=== PATIENT | female | born 1950 | race Caucasian/White ===

== ENCOUNTER 2020-06-14 14:10 | Emergency (ER) | payer MEDICARE ==
[2020-06-14 14:26] VITALS: TEMP 98.1
[2020-06-14] MEDS: MORPHINE SULFATE 4 MG/ML SYRINGE IM STA ×2 (14:59→15:43)
--- NOTE | 2020-06-14 15:24 | ED ---
General Adult HPI - General Chief complaint: Fall Stated complaint: Fall down stairs Time Seen by Provider: 06/14/20 14:36 Source: patient, RN notes reviewed Mode of arrival: ambulatory Limitations: no limitations - History of Present Illness Initial comments: 69-year-old female presents to the emergency department for a chief complaint of fall. Patient states she was walking up her basement stairs when she went to lean on the railing however there was not a railing where she was. Patient fell sideways off of the stairs about 6 feet high. Patient is not on blood thinners. Patient did hit her head but did not lose consciousness. Patient denies neck back chest or abdominal pain. Patient is complaining of left hip pain as well as right knee and lower leg pain. Patient states it is painful to bear weight on the left hip. Patient is also complaining of right forearm pain. Patient has a skin tear noted to the right forearm. Patient has no other complaints at this time including shortness of breath, chest pain, abdominal pain, nausea or vomiting, headache, or visual changes. - Related Data Allergies Allergy/AdvReac Type Severity Reaction Status Date / Time No Known Allergies Allergy Verified 06/14/20 14:26 Review of Systems ROS Statement: Those systems with pertinent positive or pertinent negative responses have been documented in the HPI. ROS Other: All systems not noted in ROS Statement are negative. Past Medical History Past Medical History: Hyperlipidemia History of Any Multi-Drug Resistant Organisms: None Reported Past Surgical History: No Surgical Hx Reported Past Psychological History: Anxiety, Depression Smoking Status: Current every day smoker Past Alcohol Use History: None Reported Past Drug Use History: None Reported General Exam - General Exam Comments Initial Comments: Right forearm does have some contusions noted it with a skin tear mid forearm about 4 cm x 4 cm. Radial pulses 2+. Patient has full range of motion of the right arm including hand and wrist elbow and shoulder. Patient does not have any shoulder or humerus tenderness. Left upper extremity appears within normal limits, no sign of injury. Right lower extremity does have minimal edema noted to the tib-fib area with tenderness to the right knee. Full range of motion of the right hip without pain. DP pulse 2+ in the right lower extremity. No lacerations or abrasions. Left lower extremity patient has pain with bearing weight on the left hip. She is able to do full range of motion of the left hip. DP pulse 2+ in the left lower extremity, capillary refill less than 2 seconds. No tenderness of the tib-fib knee or foot. No contusions or lacerations or abrasions. Limitations: no limitations General appearance: alert, in no apparent distress Head exam: Present: atraumatic, normocephalic, normal inspection Eye exam: Present: normal appearance, PERRL, EOMI. Absent: scleral icterus, conjunctival injection, periorbital swelling ENT exam: Present: normal exam, normal oropharynx, mucous membranes moist, TM's normal bilaterally, normal external ear exam Neck exam: Present: normal inspection, full ROM. Absent: tenderness (No tenderness of the cervical spine), meningismus, lymphadenopathy Respiratory exam: Present: normal lung sounds bilaterally. Absent: respiratory distress, wheezes, rales, rhonchi, stridor, chest wall tenderness (No chest wall tenderness or contusions) Cardiovascular Exam: Present: regular rate, normal rhythm, normal heart sounds. Absent: systolic murmur, diastolic murmur, rubs, gallop, clicks GI/Abdominal exam: Present: soft, normal bowel sounds. Absent: distended, tenderness (No abdominal tenderness or contusions), guarding, rebound, rigid Back exam: Absent: CVA tenderness (R), CVA tenderness (L), vertebral tenderness (No back pain or tenderness.) Neurological exam: Present: alert, oriented X3, normal gait Psychiatric exam: Present: normal affect, normal mood Course Vital Signs 06/14/20 14:22 Temperature 98.1 F Pulse Rate 78 Respiratory 18 Rate Blood Pressure 104/52 O2 Sat by Pulse 98 Oximetry Medical Decision Making - Medical Decision Making CT brain and cervical spine are negative chest x-ray shows no active cardiopulmonary disease. Normal heart. X-ray of the left hip and pelvis are negative. X-ray of the right tib-fib is negative. X-ray of the right knee shows a small knee joint effusion without fracture. X-ray of the right forearm is negative aside from soft tissue swelling which is evident on exam. Patient was reevaluated and is now able to bear weight on the left hip without any difficulty. She does still have some pain on the right knee and does have antalgic gait with this. Patient was wrapped with an Anoop wrap and recommended she follow up with orthopedics. Patient will be sent home with Tylenol 3. Patient's daughter can help her around the house. Patient will return here for any worsening symptoms. Disposition Clinical Impression: Fall, Knee pain Disposition: HOME SELF-CARE Condition: Good Instructions (If sedation given, give patient instructions): Knee Pain (ED) Additional Instructions: Please take Motrin for pain. If pain is severe take Tylenol 3. Rest ice and elevate the right knee. Use Anoop wrap as needed. Please follow-up with orthopedics by calling for an appointment on Tuesday. Please return here to the emergency room for any worsening symptoms. Is patient prescribed a controlled substance at d/c from ED?: No Referrals: Wiley Mcclain DO [Primary Care Provider] - 1-2 days Francisco J Aly DO [Medical Doctor] - 1-2 days Time of Disposition: 16:17
--- NOTE | 2020-06-14 15:27 | CT ---
EXAMINATION TYPE: CT brain chilo han con DATE OF EXAM: 06/14/2020 COMPARISON: None HISTORY: Fall today with Right sided injury CT DLP: 1231.8 mGycm Automated exposure control for dose reduction was used. Ventricles and sulci appear normal. There is no mass effect nor midline shift. There is no sign of in tracranial hemorrhage. The calvarium is intact. There is no evidence of cerebral edema. Skull base is intact. There is normal aeration of the temporal bones. There is anterior 3 mm subluxation of C3-4 in relation to C5. The facet joints are intact. There is m ild hypertrophic facet arthropathy. There is mild disc space narrowing at C5-6. There is no evidence of cervical spine fracture. IMPRESSION: Mild degenerative subluxation at C4-5. Mild spondylotic changes in the cervical spine. No fracture. Negative CT scan of the brain.
[2020-06-14] MEDS ORDERED: DIPH,PERTUS(ACELL)TETVAC-LF 0.5 ML VIAL IM ONE (15:30)
[2020-06-14] MEDS ORDERED: HYDROcodone/APAP 5-325MG 1 EACH TAB PO STA (15:43)
--- NOTE | 2020-06-14 15:47 | XR ---
EXAMINATION TYPE: XR Hip LT and AP Pelvis DATE OF EXAM: 06/14/2020 COMPARISON: NONE HISTORY: Fell down the stairs. Pain. TECHNIQUE: 3 views FINDINGS: The pelvic ring is intact. Proximal left femur and hip joint are intact. There is no sign o f hip dysplasia. Sacroiliac joints appear intact. IMPRESSION: Negative pelvis and left hip exam.
--- NOTE | 2020-06-14 15:49 | XR ---
EXAMINATION TYPE: XR knee complete RT DATE OF EXAM: 06/14/2020 COMPARISON: NONE HISTORY: Pain TECHNIQUE: 3 views FINDINGS: I see no fracture nor dislocation. Joint spaces are normal. There is small knee joint effus ion. IMPRESSION: Small knee joint effusion. No fracture seen.
--- NOTE | 2020-06-14 15:52 | XR ---
EXAMINATION TYPE: XR tibia fibula RT DATE OF EXAM: 06/14/2020 COMPARISON: NONE HISTORY: Pain TECHNIQUE: 2 views FINDINGS: Tibia and fibula appear intact. I see no fracture nor dislocation. The knee joint and ankle joint appear anatomic. IMPRESSION: Negative right tibia and fibula exam. No fracture.
--- NOTE | 2020-06-14 15:53 | XR ---
EXAMINATION TYPE: XR chest 1V portable DATE OF EXAM: 06/14/2020 COMPARISON: NONE HISTORY: Pain TECHNIQUE: Single view FINDINGS: Heart and mediastinum are normal. Lungs are clear of consolidation. There are no hilar mass es. Costophrenic angles are clear. IMPRESSION: No active cardiopulmonary disease. Normal heart.
--- NOTE | 2020-06-14 15:59 | XR ---
EXAMINATION TYPE: XR forearm RT DATE OF EXAM: 06/14/2020 COMPARISON: NONE HISTORY: Pain and bruising TECHNIQUE: 2 views FINDINGS: Radius and ulna appear intact. I see no fracture nor dislocation. Joint spaces are fairly n ormal. There is soft tissue swelling anterior to the proximal forearm on the lateral view. IMPRESSION: Negative right forearm exam. Soft tissue swelling.
[2020-06-14] MEDS ORDERED: ACET/COD 300 MG/30 MG STARTER PACK 6 TAB BTL PO STA (16:18)
[2020-06-14 16:33] VITALS: BP 116/71; PULSE 70; RESP 14
== END 2020-06-14 16:31 | disposition home or self-care (01) ==
LOC: EC 14:10
DX: S51.811A Laceration without foreign body of right forearm, initial encounter (principal); M25.461 Effusion, right knee; F17.200 Nicotine dependence, unspecified, uncomplicated; Z23 Encounter for immunization; W10.9XXA Fall (on) (from) unspecified stairs and steps, initial encounter; Y93.01 Activity, walking, marching and hiking
CPT/HCPCS: 70450; 71045; 72125; 73502; 90471; 90715; 93005; 99284

== ENCOUNTER 2023-02-13 09:59 | Emergency (ER) | payer MEDICARE ==
[2023-02-13 10:12] VITALS: TEMP 97.9
[2023-02-13] MEDS ORDERED: ONDANSETRON 4 MG/2 ML VIAL IVP STA (10:38)
[2023-02-13] MEDS ORDERED: SODIUM CHLORIDE 0.9% 500 ML 500 ML IV STA (10:38)
--- NOTE | 2023-02-13 10:42 | ED ---
Nausea/Vomiting/Diarrhea HPI - General Chief complaint: Nausea/Vomiting/Diarrhea Stated complaint: Vomiting Time Seen by Provider: 02/13/23 10:24 Source: patient, family, RN notes reviewed, old records reviewed Mode of arrival: ambulatory Limitations: no limitations - History of Present Illness Initial comments: This is a nontoxic appearing 72-year-old female who presents alert and oriented 4 with complaints of persistent nausea vomiting. Patient started chemotherapy for lung cancer on Tuesday. Has not been able to keep her Zofran down. Sent by Dr. Oliveira. She denies any chest pain or difficulty breathing. Does have occasional dizziness with position changes. Denies any fevers. No abdominal pain. Family at bedside. MD complaint: nausea, vomiting -: days(s) (3) Associated Abdominal Pain: No Radiation: none Severity scale (1-10): 0 Associated Symptoms: other (dizziness) - Related Data Home Medications Medication Instructions Recorded Confirmed ALPRAZolam [Xanax] 0.5 mg PO DAILY PRN 01/13/23 01/13/23 Amitriptyline HCl [Elavil] 50 mg PO HS 01/13/23 01/13/23 Atorvastatin [Lipitor] 40 mg PO DAILY 01/13/23 01/13/23 Ibuprofen [Motrin] 800 mg PO Q8H PRN 01/13/23 01/13/23 buPROPion SR [Wellbutrin SR] 150 mg PO BID 01/13/23 01/13/23 Previous Rx's Medication Instructions Recorded Ondansetron Odt [Zofran Odt] 4 mg PO Q8HR PRN #10 tab 02/13/23 Allergies Allergy/AdvReac Type Severity Reaction Status Date / Time adhesive Allergy RED SKIN. Verified 02/13/23 10:11 BLISTERS Review of Systems ROS Statement: Those systems with pertinent positive or pertinent negative responses have been documented in the HPI. ROS Other: All systems not noted in ROS Statement are negative. Past Medical History Past Medical History: COPD, Hyperlipidemia, Rheumatoid Arthritis (RA) Additional Past Medical History / Comment(s): RT PULMONARY NODULE. AND SOME POLYPS ON RT LUNG History of Any Multi-Drug Resistant Organisms: None Reported Past Surgical History: Tubal Ligation Additional Past Surgical History / Comment(s): COLONOSCOPY. CATARACTS REMOVED BILAT EYES Past Anesthesia/Blood Transfusion Reactions: No Reported Reaction Past Psychological History: Anxiety, Depression Smoking Status: Current every day smoker - Past Family History Mother Family Medical History: No Reported History General Exam Limitations: no limitations General appearance: alert, in no apparent distress Head exam: Present: atraumatic Eye exam: Present: normal appearance. Absent: scleral icterus, conjunctival injection, periorbital swelling ENT exam: Present: mucous membranes moist Neck exam: Absent: tenderness, meningismus Respiratory exam: Absent: respiratory distress, accessory muscle use Cardiovascular Exam: Present: regular rate GI/Abdominal exam: Present: soft. Absent: distended, tenderness, guarding, rebound, rigid Extremities exam: Present: full ROM, normal capillary refill. Absent: pedal edema, calf tenderness Neurological exam: Present: alert, oriented X3 Psychiatric exam: Present: normal affect, normal mood Skin exam: Present: warm, dry, normal color. Absent: cyanosis, diaphoretic, petechiae, pallor Course Vital Signs 02/13/23 02/13/23 10:05 12:50 Temperature 97.9 F Pulse Rate 85 83 Respiratory 20 18 Rate Blood Pressure 123/71 122/83 O2 Sat by Pulse 94 L 96 Oximetry Medical Decision Making - Medical Decision Making Patient was given IV fluids and Zofran along with droperidol with relief of nausea. She is tolerating oral fluids. Vital signs are stable No evidence of leukocytosis. Hemoglobin and hematocrit are stable. Electrolytes show no area of concern. Urine cloudy with positive leukocyte esterase and bacteria. She is currently on chemotherapy will be treated with a dose of Rocephin for UTI in the ER. Urine sent for culture. Patient advised if culture positive will call prescription for antibiotics. She was given Zofran ODT and directed to follow up with her oncologist. Patient family are agreeable to this plan of care. Case discussed with Dr. Red Was pt. sent in by a medical professional or institution (, PA, [facility] [facility], urgent care, hospital, or care home...) When possible be specific @ -Dr Oliveira Did you speak to anyone other than the patient for history (EMS, parent, family, police, friend...)? What history was obtained from this source @ -No Did you review nursing and triage notes (agree or disagree)? Why? @ -I reviewed and agree with nursing and triage notes Were old charts reviewed (outside hosp., previous admission, EMS record, old EKG, old radiological studies, urgent care reports/EKG's, care home records)? Report findings @ -Previous oncology notes diagnosis right pulmonary mass/cancer Differential Diagnosis (chest pain, altered mental status, abdominal pain women, abdominal pain men, vaginal bleeding, weakness, fever, dyspnea, syncope, headache, dizziness, GI bleed, back pain, seizure, CVA, palpatations, mental health, musculoskeletal)? @ -adverse reaction to chemotherapy, viral illness, bowel obstruction, sepsis, UTI, this is not an all inclusive list EKG interpreted by me (3pts min.). @ -n/a X-rays interpreted by me (1pt min.). @ -None done CT interpreted by me (1pt min.). @ -None done U/S interpreted by me (1pt. min.). @ -None done What testing was considered but not performed or refused? (CT, X-rays, U/S, labs)? Why? @ -None What meds were considered but not given or refused? Why? @ -None Did you discuss the management of the patient with other professionals (shayna greenwood i.e. , PA, [facility] [facility], lab, RT, psych nurse, social work specialist, machinist general, teacher, traffic division commanding officer, lining caser)? Give summary @ -No Was smoking cessation discussed for >3mins.? @ -No Was critical care preformed (if so, how long)? @ -No Were there social determinants of health that impacted care today? How? (Homelessness, low income, unemployed, alcoholism, drug addiction, transportation, low edu. Level, literacy, decrease access to med. care, senior living, rehab)? @ -No Was there de-escalation of care discussed even if they declined (Discuss DNR or withdrawal of care, Hospice)? DNR status @ -No What co-morbidities impacted this encounter? (DM, HTN, Smoking, COPD, CAD, Cancer, CVA, ARF, Chemo, Hep., AIDS, mental health diagnosis, sleep apnea, morbid obesity)? @ -Lung cancer, COPD, rheumatoid arthritis, hyper-lipidemia Was patient admitted / discharged? Hospital course, mention meds given and route, prescriptions, significant lab abnormalities, going to OR and other perti nent info. @ -Discharged Undiagnosed new problem with uncertain prognosis? @ -No Drug Therapy requiring intensive monitoring for toxicity (Heparin, Nitro, Insulin, Cardizem)? @ -No Were any procedures done? @ -No Diagnosis/symptom? @ -Chemotherapy-induced nausea vomiting Acute, or Chronic, or Acute on Chronic? @ -acute Uncomplicated (without systemic symptoms) or Complicated (systemic symptoms)? @ -Uncomplicated Side effects of treatment? @ -No Exacerbation, Progression, or Severe Exacerbation? @ -No Poses a threat to life or bodily function? How? (Chest pain, [place], [place], pneumonia, PE, COPD, DKA, ARF, appy, cholecystitis, CVA, Diverticulitis, Homicidal, Suicidal, threat to staff... and all critical care pts) @ -No - Lab Data Result diagrams: 02/13/23 10:48 02/13/23 10:48 Lab Results 02/13/23 02/13/23 02/13/23 Range/Units 10:48 10:48 10:48 WBC 6.4 (3.8-10.6) k/uL RBC 3.95 (3.80-5.40) m/uL Hgb 13.7 (11.4-16.0) gm/dL Hct 40.3 (34.0-46.0) % MCV 101.9 H (80.0-100.0) fL MCH 34.6 (25.0-35.0) pg MCHC 34.0 (31.0-37.0) g/dL RDW 12.7 (11.5-15.5) % Plt Count 189 (150-450) k/uL MPV 9.8 Neutrophils % 88 % Lymphocytes % 10 % Monocytes % 0 % Eosinophils % 1 % Basophils % 0 % Neutrophils # 5.6 (1.3-7.7) k/uL Lymphocytes # 0.6 L (1.0-4.8) k/uL Monocytes # 0.0 (0-1.0) k/uL Eosinophils # 0.1 (0-0.7) k/uL Basophils # 0.0 (0-0.2) k/uL Macrocytosis Slight Sodium 138 (137-145) mmol/L Potassium 3.4 L (3.5-5.1) mmol/L Chloride 96 L (98-107) mmol/L Carbon Dioxide 39 H (22-30) mmol/L Anion Gap 3 mmol/L BUN 15 (7-17) mg/dL Creatinine 0.74 (0.52-1.04) mg/dL Est GFR (CKD-EPI)AfAm >90 (>60 ml/min/1.73 sqM) Est GFR (CKD-EPI)NonAf 81 (>60 ml/min/1.73 sqM) Glucose 103 H (74-99) mg/dL Calcium 8.9 (8.4-10.2) mg/dL Total Bilirubin 0.8 (0.2-1.3) mg/dL AST 26 (14-36) U/L ALT 38 H (4-34) U/L Alkaline Phosphatase 56 (38-126) U/L Total Protein 6.6 (6.3-8.2) g/dL Albumin 3.9 (3.5-5.0) g/dL Urine Color Yellow Urine Appearance Cloudy H (Clear) Urine pH 7.5 (5.0-8.0) Ur Specific [place] 1.011 (1.001-1.035) Urine Protein Trace H (Negative) Urine Glucose (UA) Trace H (Negative) Urine Ketones Negative (Negative) Urine Blood Negative (Negative) Urine Nitrite Negative (Negative) Urine Bilirubin Negative (Negative) Urine Urobilinogen <2.0 (<2.0) mg/dL Ur Leukocyte Esterase Large H (Negative) Urine RBC 3 (0-5) /hpf Urine WBC 11 H (0-5) /hpf Ur Squamous Epith Cells 11 H (0-4) /hpf Urine Bacteria Rare H (None) /hpf Disposition Clinical Impression: Nausea & vomiting Disposition: HOME SELF-CARE Condition: Good Instructions (If sedation given, give patient instructions): Acute Nausea and Vomiting (ED) Additional Instructions: Take Zofran as needed for nasuea and vomiting. Follow-up with your primary care doctor and oncologist this week. Return to the emergency room with any new or concerning symptoms. Your urinalysis was sent for culture and if you need antibiotics you will be contacted. Prescriptions: Ondansetron Odt [Zofran Odt] 4 mg PO Q8HR PRN #10 tab PRN Reason: Nausea Is patient prescribed a controlled substance at d/c from ED?: No Referrals: Wiley Mcclain DO [Primary Care Provider] - 1-2 days Ernie Oliveira MD [STAFF PHYSICIAN] - 1-2 days Time of Disposition: 12:55
[2023-02-13 11:00] LABS: Basophils % (A) 0 %; Eosinophils # (A) 0.1 k/uL (0-0.7); Eosinophils % (A) 1 %; HCT 40.3 % (34.0-46.0); HGB 13.7 gm/dL (11.4-16.0); Lymphocytes # (A) 0.6 k/uL (1.0-4.8); Lymphocytes % (A) 10 %; MCH 34.6 pg (25.0-35.0); MCV 101.9 fL (80.0-100.0); Macrocytosis Slight; Mean Platelet Volume 9.8; Monocytes % (A) 0 %; Neutrophils # (A) 5.6 k/uL (1.3-7.7); Neutrophils % (A) 88 %; Platelet Count 189 k/uL (150-450); RBC 3.95 m/uL (3.80-5.40); RDW 12.7 % (11.5-15.5); WBC 6.4 k/uL (3.8-10.6)
[2023-02-13 11:21] LABS: ALT 38 U/L (4-34); AST 26 U/L (14-36); African American GFR (CKD) >90 (>60 ml/min/1.73 sqM); Albumin 3.9 g/dL (3.5-5.0); Alkaline Phosphatase 56 U/L (38-126); Anion Gap 3 mmol/L; Blood Urea Nitrogen 15 mg/dL (7-17); Calcium 8.9 mg/dL (8.4-10.2); Carbon Dioxide 39 mmol/L (22-30); Chloride 96 mmol/L (98-107); Glucose 103 mg/dL (74-99); Non-African American GFR(CKD) 81 (>60 ml/min/1.73 sqM); Potassium 3.4 mmol/L (3.5-5.1); Sodium 138 mmol/L (137-145); Total Bilirubin 0.8 mg/dL (0.2-1.3); Total Protein 6.6 g/dL (6.3-8.2)
[2023-02-13 11:58] LABS: Appearance,Urine Cloudy (Clear); Bacteria,Urine Rare /hpf; Bilirubin,Urine Negative (Negative); Blood,Urine Negative (Negative); Color,Urine Yellow; Glucose,Urine (UA) Trace (Negative); Ketones,Urine Negative (Negative); Leukocyte Esterase,Urine Large (Negative); Nitrite,Urine Negative (Negative); PH, Urine 7.5 (5.0-8.0); Protein,Urine Trace (Negative); RBC,Urine 3 /hpf (0-5); Specific Gravity,Urine 1.011 (1.001-1.035); Squamous Epithelial Cell,Urine 11 /hpf (0-4); Urobilinogen,Urine <2.0 mg/dL (<2.0); WBC,Urine 11 /hpf (0-5)
[2023-02-13] MEDS ORDERED: cefTRIAXone IN SWFI 1,000 MG/10 ML SYRINGE IVP STA (12:36)
[2023-02-13 12:51] VITALS: BP 122/83; PULSE 83; RESP 18
[2023-02-13] MEDS ORDERED: ONDANSETRON 4 MG ODT STARTER PACK 2 TAB BTL PO STA (12:55)
== END 2023-02-13 13:05 | disposition home or self-care (01) ==
LOC: EC 09:59
DX: R11.2 Nausea with vomiting, unspecified (principal); J44.9 Chronic obstructive pulmonary disease, unspecified; E78.5 Hyperlipidemia, unspecified; M06.9 Rheumatoid arthritis, unspecified; F41.9 Anxiety disorder, unspecified; F32.A Depression, unspecified; F17.200 Nicotine dependence, unspecified, uncomplicated; Z91.048 Other nonmedicinal substance allergy status; Z79.899 Other long term (current) drug therapy
CPT/HCPCS: 36415; 80053; 85025; 81001; 87086; 99284; 96374; 96375 ×2; 96361; J2405; J0696; J1790

== ENCOUNTER 2023-02-22 08:31 | Emergency (ER) | payer MEDICARE ==
[2023-02-22 08:59] VITALS: RESP 18; TEMP 99.5
[2023-02-22] MEDS ORDERED: RX INFO: IV CONTRAST WAS GIVEN 1 EACH MISC MISCELLANE PRN (10:12)
[2023-02-22] MEDS: MORPHINE SULFATE 2 MG/ML SYRINGE IVP ONE (10:58)
--- NOTE | 2023-02-22 11:06 | XR ---
EXAMINATION TYPE: XR hand complete RT DATE OF EXAM: 02/22/2023 CLINICAL HISTORY: pain TECHNIQUE: Frontal, lateral and oblique images of the right hand are obtained. COMPARISON: None. FINDINGS: There is no acute fracture/dislocation evident. The joint spaces appear within normal limi ts. The overlying soft tissue appears unremarkable. IMPRESSION: There is no acute fracture or dislocation ICD 10 NO FRACTURE, INITIAL EVALUATION
[2023-02-22] MEDS: cefTRIAXone IN SWFI 1,000 MG/10 ML SYRINGE IVP STA (11:09)
[2023-02-22 11:31] LABS: ALT 19 U/L (4-34); AST 19 U/L (14-36); African American GFR (CKD) >90 (>60 ml/min/1.73 sqM); Albumin 3.6 g/dL (3.5-5.0); Alkaline Phosphatase 71 U/L (38-126); Anion Gap 8 mmol/L; Blood Urea Nitrogen 10 mg/dL (7-17); Calcium 8.6 mg/dL (8.4-10.2); Carbon Dioxide 26 mmol/L (22-30); Chloride 102 mmol/L (98-107); Glucose 93 mg/dL (74-99); Non-African American GFR(CKD) 87 (>60 ml/min/1.73 sqM); Potassium 3.9 mmol/L (3.5-5.1); Sodium 136 mmol/L (137-145); Total Bilirubin 0.5 mg/dL (0.2-1.3); Total Protein 6.3 g/dL (6.3-8.2)
--- NOTE | 2023-02-22 11:55 | CT ---
EXAMINATION TYPE: CT brain cspine wo con CT DLP: 1261 mGycm, Automated exposure control for dose reduction was used. DATE OF EXAM: 02/22/2023 11:42 AM COMPARISON: CT brain C-spine 06/14/2020. CLINICAL INDICATION:Female, 72 years old with history of fall, head injury, syncope; Fall, bruise to left eye TECHNIQUE: Brain: Multiple axial CT images of the brain were obtained without IV contrast. Cspine: Axial CT images from the skull base to the inferior aspect of T2 we obtained without intraven ous contrast. Coronal and sagittal reformatted images were also reviewed. FINDINGS: Brain: Extra-axial spaces: No abnormal extra-axial fluid collections. Ventricular system: Within normal limits Cerebral parenchyma: No acute intraparenchymal hemorrhage or mass effect. The fuentes-white junction is well differentiated. Scattered hypoattenuating areas are seen within the white matter. Cerebellum: Unremarkable. Mass effect: No evidence of midline shift. Intracranial vasculature: Atherosclerotic calcifications of the intracranial vessels. Soft tissues: Normal. Calvarium/osseous structures: No depressed skull fracture. Paranasal sinuses and mastoid air cells: Clear. Visualized orbits: Orbital contents are intact. Cervical spine: Fracture: None. Osseous structures: Multilevel facet arthropathy. Mild disc space narrowing at C5-C6. Vertebral alignment: Similar grade 1 anterolisthesis of C4 on C5. Spinal canal/Neural Foramina: No evidence of significant spinal canal narrowing. Facet joint uncovert ebral joint arthropathy scattered throughout the cervical spine with varying degrees of neural forami nal stenosis. Neck soft tissues: Prevertebral soft tissues are within normal limits. Other: The airway is patent. Please refer to dedicated CT chest of the same day for findings. IMPRESSION: 1. No acute intracranial process. 2. Nonspecific white matter changes, likely secondary to chronic small vessel ischemic disease. 3. No evidence of cervical spine fracture. 4. Mild multilevel degenerative disc disease.
--- NOTE | 2023-02-22 12:08 | CT ---
EXAMINATION TYPE: CT chest w con DATE OF EXAM: 02/22/2023 COMPARISON: HISTORY: Fall, left side rib pain CT DLP: 239 mGycm Automated exposure control for dose reduction was used. TECHNIQUE: CT scan of the chest is performed with IV Contrast, patient injected with 100 mL of Isovue 300. MIP Images are created on CT scanner and reviewed. 3D reconstructed images are created on an independent workstation and reviewed. FINDINGS: LUNGS: The lungs are grossly clear, there is no concerning consolidative pneumonia identified. Ther e is no pleural effusion or pneumothorax seen. The tracheobronchial tree is patent. Hyperinflation s uggests COPD. There is an apical lung nodule measuring 1 cm within the right lung apex this was not h ypermetabolic by recent PET scan. Right upper lobe pulmonary nodule measuring 1 cm on prior exam is n ot seen with certainty on today's exam. MEDIASTINUM: There is right perihilar soft tissue fullness is reduced in size relative to the previou s PET scan. Pretracheal and subcarinal lymph nodes are stable in size and were metabolically active b y recent PET scan but on today's study measure less than a centimeter in short axis. No pericardial e ffusion is seen. Coronary artery calcifications seen. Atherosclerotic change aorta. No diagnostic ev idence of aneurysm. OTHER: There is a hairline nondisplaced fracture anterolateral left sixth rib. Small hiatal hernia n oted. Hypertrophic and degenerative changes of the spine. IMPRESSION: 1. Hairline nondisplaced fracture anterior lateral left sixth rib correlate with point tenderness. 2. COPD with interval resolution of 1 cm nodule right upper lobe and interval reduction right hilar a nd mediastinal adenopathy. Correlate for response to therapy.
[2023-02-22 12:11] LABS: HCT 34.4 % (34.0-46.0); HGB 11.7 gm/dL (11.4-16.0); MCH 34.7 pg (25.0-35.0); MCHC 33.9 g/dL (31.0-37.0); MCV 102.5 fL (80.0-100.0); Macrocytosis Slight; Mean Platelet Volume 9.3; RBC 3.35 m/uL (3.80-5.40); RDW 13.3 % (11.5-15.5)
[2023-02-22 13:00] LABS: Platelet Count 98 k/uL (150-450); WBC 0.8 k/uL (3.8-10.6)
--- NOTE | 2023-02-22 13:29 | ED ---
Fall HPI - General Chief Complaint: Fall Stated Complaint: fall Time Seen by Provider: 02/22/23 09:00 Source: patient Mode of arrival: ambulatory - History of Present Illness Initial Comments: 72-year-old female past history of cancer on chemotherapy who presents to the emergency department reporting the fall. States she tripped over a curb yesterday and fell on her left-sided chest wall. She has been having chest wall pain and some shortness of consciousness. She hit her head and briefly lost consciousness. Does not take any blood thinners. She denies any neck or back pain. No abdominal pain. Denies nausea or vomiting. Also reports 2 abrasion to her right wrist. It blistered last night. Patient placed a cut in it this morning and reports that the redness is spreading of the wrist. She is concerned for infection as she is on chemo last received it 10 days ago. She denies any headache or visual changes. No other alleviating, precipitating or modifying factors - Related Data Home Medications Medication Instructions Recorded Confirmed ALPRAZolam [Xanax] 0.5 mg PO BID 01/13/23 02/22/23 Amitriptyline HCl [Elavil] 50 mg PO HS 01/13/23 02/22/23 Atorvastatin [Lipitor] 40 mg PO DAILY 01/13/23 02/22/23 buPROPion SR [Wellbutrin SR] 150 mg PO BID 01/13/23 02/22/23 Aprepitant [Emend] 80 mg PO DIRECTED 02/22/23 02/22/23 Ibuprofen [Motrin] 600 mg PO Q8HR PRN 02/22/23 02/22/23 Nicotine 14Mg/24Hr Patch [Habitrol 1 patch TRANSDERM DAILY 02/22/23 02/22/23 14Mg/24Hr Patch] OLANZapine [ZyPREXA] 2.5 mg PO HS 02/22/23 02/22/23 Sennosides/Docusate Sodium [Senna 2 tab PO BID 02/22/23 02/22/23 Plus 8.6-50 mg Tablet] Previous Rx's Medication Instructions Recorded Ondansetron Odt [Zofran Odt] 4 mg PO Q8HR PRN #10 tab 02/13/23 Bacitracin Zinc Oint 1 applic TOPICAL TID #28 gm 02/22/23 Cephalexin [Keflex] 500 mg PO Q6HR #20 cap 02/22/23 HYDROcodone/APAP 7.5-325MG [[place] 1 tab PO Q4HR PRN 3 Days #18 tab 02/22/23 7.5-325] Lidocaine 5% Patch [Lidoderm] 1 patch TOPICAL DAILY #24 patch 02/22/23 Allergies Allergy/AdvReac Type Severity Reaction Status Date / Time adhesive Allergy RED SKIN. Verified 02/22/23 11:03 BLISTERS Review of Systems ROS Statement: Those systems with pertinent positive or pertinent negative responses have been documented in the HPI. ROS Other: All systems not noted in ROS Statement are negative. Past Medical History Past Medical History: COPD, Hyperlipidemia, Rheumatoid Arthritis (RA) Additional Past Medical History / Comment(s): RT PULMONARY NODULE. AND SOME POLYPS ON RT LUNG History of Any Multi-Drug Resistant Organisms: None Reported Past Surgical History: Tubal Ligation Additional Past Surgical History / Comment(s): COLONOSCOPY. CATARACTS REMOVED BILAT EYES Past Anesthesia/Blood Transfusion Reactions: No Reported Reaction Past Psychological History: Anxiety, Depression Smoking Status: Current every day smoker - Past Family History Mother Family Medical History: No Reported History General Exam Limitations: no limitations General appearance: alert, in no apparent distress Head exam: Present: atraumatic, normocephalic, normal inspection Eye exam: Present: PERRL, EOMI, periorbital swelling (and ecchymosis around left eye). Absent: scleral icterus, conjunctival injection ENT exam: Present: normal exam, mucous membranes moist Neck exam: Present: normal inspection. Absent: tenderness, meningismus, lymphadenopathy Respiratory exam: Present: normal lung sounds bilaterally, chest wall tenderness (left lateral chest wall). Absent: respiratory distress, wheezes, rales, rhonchi, stridor Cardiovascular Exam: Present: normal rhythm, tachycardia, normal heart sounds. Absent: systolic murmur, diastolic murmur, rubs, gallop, clicks GI/Abdominal exam: Present: soft, normal bowel sounds. Absent: distended, tenderness, guarding, rebound, rigid Extremities exam: Present: normal inspection, full ROM, normal capillary refill. Absent: tenderness, pedal edema, joint swelling, calf tenderness Back exam: Present: normal inspection Neurological exam: Present: alert, oriented X3, CN II-XII intact Psychiatric exam: Present: normal affect, normal mood Skin exam: Present: warm, dry, abrasion (right thenar eminence with surrounding redness. No identifiable abcess). Absent: rash Course Vital Signs 02/22/23 02/22/23 08:56 13:28 Temperature 99.5 F Pulse Rate 103 H 100 Respiratory 18 18 Rate Blood Pressure 119/72 114/71 O2 Sat by Pulse 96 96 Oximetry Medical Decision Making - Medical Decision Making Was pt. sent in by a medical professional or institution (, TOMAS, DUE DILIGENCE COORDINATOR, urgent care, hospital, or [facility]...) When possible be specific @ -No Did you speak to anyone other than the patient for history (EMS, parent, family, police, friend...)? What history was obtained from this source @ -Patients daughter helped to describe her symptoms Did you review nursing and triage notes (agree or disagree)? Why? @ -I reviewed and agree with nursing and triage notes Were old charts reviewed (outside hosp., previous admission, EMS record, old EKG, old radiological studies, urgent care reports/EKG's, [facility] records)? Report findings @ -No old charts were reviewed Differential Diagnosis (chest pain, altered mental status, abdominal pain women, abdominal pain men, vaginal bleeding, weakness, fever, dyspnea, syncope, headache, dizziness, GI bleed, back pain, seizure, CVA, palpatations, mental health, musculoskeletal)? @ -cellulites, wrist fracture, abscess, pneumothorax, rib fracture, pulmonary contusion EKG interpreted by me (3pts min.). @ -As above X-rays interpreted by me (1pt min.). @ -yes CT interpreted by me (1pt min.). @ -yes U/S interpreted by me (1pt. min.). @ -None done What testing was considered but not performed or refused? (CT, X-rays, U/S, labs)? Why? @ -None What meds were considered but not given or refused? Why? @ -None Did you discuss the management of the patient with other professionals (professionals i.e. TOMAS Marino, DUE DILIGENCE COORDINATOR, lab, RT, psych nurse, secondary social studies teacher, administrative officer, teacher, v/stol landing signal officer, piano case and bench assembler)? Give summary @ -No Was smoking cessation discussed for >3mins.? @ -No Was critical care preformed (if so, how long)? @ -No Were there social determinants of health that impacted care today? How? (Homelessness, low income, unemployed, alcoholism, drug addiction, transportation, low edu. Level, literacy, decrease access to med. care, custodial, rehab)? @ -No Was there de-escalation of care discussed even if they declined (Discuss DNR or withdrawal of care, Hospice)? DNR status @ -No What co-morbidities impacted this encounter? (DM, HTN, Smoking, COPD, CAD, Cancer, CVA, ARF, Chemo, Hep., AIDS, mental health diagnosis, sleep apnea, morbid obesity)? @ -lung cancer on chemo Was patient admitted / discharged? Hospital course, mention meds given and route, prescriptions, significant lab abnormalities, going to OR and other pertinent info. @ -Upon arrival patient is placed into room 10. History of physical exam is performed. IV access is established. Patient is given pain medications. Laboratories his her conducted which demonstrated a white blood cell count of 0.8. CT of the brain and cervical spine demonstrates no acute process. And x- ray demonstrates no residual foreign body. CT of the chest demonstrates a healing fracture of the left lateral sixth rib. Results are discussed with patient. She is given a incentive spirometer. She is given a prescription for [place] and lidocaine patches. She'll be placed on Keflex for her right hand wound. Instructed to keep it clean and dry. Pelvic Dr. Tom return for any new or worsening symptoms per patient was agreeable to plan she was discharged home in stable condition Undiagnosed new problem with uncertain prognosis? @ -No Drug Therapy requiring intensive monitoring for toxicity (Heparin, Nitro, Insulin, Cardizem)? @ -No Were any procedures done? @ -No Diagnosis/symptom? @ -acute fall, left chest wall pain, acute rib fracture, cellulitis right hand, neutropenia, lung cancer on chemo Acute, or Chronic, or Acute on Chronic? @ -acute Uncomplicated (without systemic symptoms) or Complicated (systemic symptoms)? @ -complicated Side effects of treatment? @ -No Exacerbation, Progression, or Severe Exacerbation? @ -No Poses a threat to life or bodily function? How? (Chest pain, USA, CT, pneumonia, PE, COPD, DKA, ARF, appy, cholecystitis, CVA, Diverticulitis, Homicidal, Suicidal, threat to staff... and all critical care pts) @ -No - Lab Data Result diagrams: 02/22/23 10:50 02/22/23 10:50 Lab Results 02/22/23 02/22/23 Range/Units 10:50 10:50 WBC 0.8 L* (3.8-10.6) k/uL RBC 3.35 L (3.80-5.40) m/uL Hgb 11.7 (11.4-16.0) gm/dL Hct 34.4 (34.0-46.0) % MCV 102.5 H (80.0-100.0) fL MCH 34.7 (25.0-35.0) pg MCHC 33.9 (31.0-37.0) g/dL RDW 13.3 (11.5-15.5) % Plt Count 98 L (150-450) k/uL MPV 9.3 Manual Slide Review Performed Macrocytosis Slight Sodium 136 L (137-145) mmol/L Potassium 3.9 (3.5-5.1) mmol/L Chloride 102 (98-107) mmol/L Carbon Dioxide 26 (22-30) mmol/L Anion Gap 8 mmol/L BUN 10 (7-17) mg/dL Creatinine 0.68 (0.52-1.04) mg/dL Est GFR (CKD-EPI)AfAm >90 (>60 ml/min/1.73 sqM) Est GFR (CKD-EPI)NonAf 87 (>60 ml/min/1.73 sqM) Glucose 93 (74-99) mg/dL Calcium 8.6 (8.4-10.2) mg/dL Total Bilirubin 0.5 (0.2-1.3) mg/dL AST 19 (14-36) U/L ALT 19 (4-34) U/L Alkaline Phosphatase 71 (38-126) U/L Total Protein 6.3 (6.3-8.2) g/dL Albumin 3.6 (3.5-5.0) g/dL Disposition Clinical Impression: Fall, Left rib fracture, Chemotherapy induced neutropenia, Abrasion of right hand, Concussion with loss of consciousness Disposition: HOME SELF-CARE Condition: Stable Instructions (If sedation given, give patient instructions): Rib Fracture (ED), Fall Prevention (ED) Additional Instructions: Please take the antibiotics starting tomorrow. You may alternate taking the [place] with Motrin every 4 hours. Do not take any extra Tylenol. Use the incentive spirometer once every 2 hours. Keep your wound cleaned and dry. Return if your redness and swelling gets any worse or if you have pustular drainage from the site Prescriptions: Bacitracin Zinc Oint 1 applic TOPICAL TID #28 gm Cephalexin [Keflex] 500 mg PO Q6HR #20 cap Lidocaine 5% Patch [Lidoderm] 1 patch TOPICAL DAILY #24 patch HYDROcodone/APAP 7.5-325MG [[place] 7.5-325] 1 tab PO Q4HR PRN 3 Days #18 tab PRN Reason: Pain Is patient prescribed a controlled substance at d/c from ED?: Yes When asked, does pt state using other controlled substances?: No Referrals: Wiley Mcclain DO [Primary Care Provider] - 1-2 days Time of Disposition: 13:28
[2023-02-22 13:30] VITALS: BP 114/71; PULSE 100
[2023-02-22] MEDS: MORPHINE SULFATE 4 MG/ML SYRINGE IVP STA (13:30)
[2023-02-22] MEDS: BACITRACIN OINT 1 EACH PACKET TOPICAL ONE (13:40)
== END 2023-02-22 13:45 | disposition home or self-care (01) ==
LOC: EC 08:31
DX: S22.32XA Fracture of one rib, left side, initial encounter for closed fracture (principal); S06.0X9A Concussion with loss of consciousness of unspecified duration, initial encounter; T45.1X5A Adverse effect of antineoplastic and immunosuppressive drugs, initial encounter; E78.5 Hyperlipidemia, unspecified; J44.9 Chronic obstructive pulmonary disease, unspecified; F41.9 Anxiety disorder, unspecified; F32.A Depression, unspecified; F17.200 Nicotine dependence, unspecified, uncomplicated; Z79.1 Long term (current) use of non-steroidal anti-inflammatories (NSAID); Z79.899 Other long term (current) drug therapy; W01.0XXA Fall on same level from slipping, tripping and stumbling without subsequent striking against object, initial encounter
CPT/HCPCS: 36415; 80053; 85025; 87040; 73130; 72125; 70450; 71260; 99284; 96375; 96376; 96374; J2270 ×2; J0696; Q9967

== ENCOUNTER → 2023-03-31 | Outpatient (CLI) | payer MEDICARE ==
--- NOTE | 2023-03-31 15:26 | XR ---
EXAMINATION TYPE: XR chest 2V DATE OF EXAM: 03/31/2023 COMPARISON: NONE TECHNIQUE: PA and lateral views submitted. HISTORY: cough FINDINGS: The lungs are clear and there is no pneumothorax, pleural effusion, or focal pneumonia. Heart size normal and no overt failure. Osseous structures demonstrate hypertrophic and degenerative changes of the spine. Hyperinflation suggests COPD. IMPRESSION: 1. No acute process.
== END | disposition home or self-care (01) ==
LOC: RADXRMAIN 14:05
PROVIDERS: ATTEND Internal Medicine Hematology & Oncology
DX: C34.91 Malignant neoplasm of unspecified part of right bronchus or lung (principal); E78.5 Hyperlipidemia, unspecified; F41.9 Anxiety disorder, unspecified
CPT/HCPCS: 71046

== ENCOUNTER → 2023-05-02 | Outpatient (CLI) | payer MEDICARE ==
[2023-05-02 14:35] LABS: African American GFR (CKD) >90 (>60 ml/min/1.73 sqM); Blood Urea Nitrogen 8 mg/dL (7-17); Non-African American GFR(CKD) >90 (>60 ml/min/1.73 sqM)
--- NOTE | 2023-05-03 17:27 | CT ---
EXAMINATION TYPE: CT ChestAbdPelvis w con DATE OF EXAM: 05/02/2023 INDICATION: obs for mets, hx lung ca COMPARISON: 02/22/2023r CT DLP: 528.10 mGycm CONTRAST: Performed with Oral Contrast and with IV Contrast, patient injected with 100 mL of Isovue 300. TECHNIQUE: Axial images at 5 mm thick sections. Reconstructed images in the coronal plane. Delayed images through the kidneys. FINDINGS: CT CHEST: Portion of the thyroid visualized is normal. There is a spiculated 1.0 x 2.1 cm mass at the right apex. This may have increased spiculation from c omparison. Previous measurement 1.1 x 1.8 cm. No enlarged mediastinal or hilar adenopathy is evident. The ascending aorta diameter at the level of the main pulmonary artery is 3.2 cm. The main pulmonary artery diameter at the bifurcation is 2.[address] ABDOMEN: Liver: Normal Spleen: Normal Pancreas: Normal Adrenal glands: The adrenal glands are normal. Gallbladder: Appears to be some filling of the gallbladder. This is nonspecific and not typical galls tones. Debris should be considered. Kidneys: No masses are evident. No hydronephrosis is present. No cysts are present. Aorta: Vascular calcification is within the aorta. Inferior vena cava: Normal. CT PELVIS: Loops of bowel within the abdomen and pelvis are normal. This study has limited oral contrast wit hin distal small bowel loops. There are loops of bowel lacking oral contrast limiting their evaluatio n. Appendix: Not visualized. Urinary bladder: Normal. Genitourinary structures: Uterus appears unremarkable. Adnexa are unremarkable. Osseous structures: No suspicious lytic or sclerotic lesions. Facet degenerative changes are present L5-S1. IMPRESSIONS: 1. Right apical mass appears larger with more spiculation in comparison. Consider reevaluation with P ET/CT. 2. There may be debris within the contracted gallbladder. Ultrasound can be performed as clinically i ndicated
== END | disposition home or self-care (01) ==
LOC: RADCTMAIN 13:24
PROVIDERS: ATTEND Internal Medicine Hematology & Oncology
DX: C34.91 Malignant neoplasm of unspecified part of right bronchus or lung (principal)
CPT/HCPCS: 82565; 84520; 71260; 74177; 36415; Q9967

== ENCOUNTER → 2023-08-01 | Outpatient (CLI) | payer MEDICARE ==
[2023-08-01 12:23] LABS: African American GFR (CKD) >90 (>60 ml/min/1.73 sqM); Blood Urea Nitrogen 9 mg/dL (7-17); Non-African American GFR(CKD) 84 (>60 ml/min/1.73 sqM)
--- NOTE | 2023-08-01 14:36 | CT ---
EXAMINATION TYPE: CT ChestAbdPelvis w con CT DLP: 428.1 mGycm, Automated exposure control for dose reduction was used. DATE OF EXAM: 08/01/2023 1:40 PM COMPARISON: CT chest abdomen pelvis 05/02/2023, CT chest 02/22/2023, PET/CT 01/07/2023. CLINICAL INDICATION:Female, 73 years old with history of C34.91 MALIGNANT NEOPLASM OF UNSP PART OF RI GHT BR; PHH, f/u lung ca Technique: Multiple axial images of the chest, abdomen, and pelvis were obtained following the intrav enous administration of 100 mL Isovue-300. Oral contrast was a medical officer psychiatry. Two-dimensional coronal and sagittal reconstructions were obtained. Findings: CHEST: LUNGS/ PLEURA: No pleural effusion, pneumothorax, or focal consolidation. Mild centrilobular emphysem atous changes. Stable right apical soft tissue scarring with spiculations from prior examination. Thi s was not FDG avid on prior PET/CT. No new or enlarging pulmonary nodules. AIRWAY: Patent and unremarkable.. HEART: Size within normal limits. No pericardial effusion. Mild coronary artery calcifications. MEDIASTINUM: No evidence of adenopathy. VASCULATURE: No aortic aneurysm. MUSCULOSKELETAL: No acute osseous abnormalities. Remote left anterior rib healing fractures. SOFT TISSUES/LYMPH NODES: Unremarkable. LOWER NECK: No significant findings. ABDOMEN: ABDOMEN LIVER: Subcentimeter stable right lateral lower hepatic lobe hypodense focus which is too small yaya cterize but likely represents a cyst. GALLBLADDER AND BILE DUCTS: Layering increased densities within the lumen consistent with gallstones are present. PANCREAS: Unremarkable. SPLEEN: Unremarkable. ADRENAL GLANDS: Unremarkable. KIDNEYS AND URETERS: No evidence of hydronephrosis or renal calculus. The kidneys enhance symmetrical ly. PELVIS BLADDER: Unremarkable REPRODUCTIVE: Unremarkable. ABDOMEN & PELVIS STOMACH AND BOWEL: Stomach and duodenum are unremarkable. Enteric contrast reaches the ascending colo n. No evidence of bowel obstruction. PERITONEUM: No evidence of pneumoperitoneum or free fluid. VASCULATURE: Mild atherosclerotic calcifications are present throughout the abdominal aorta and its b ranches. No abdominal aortic aneurysm. MUSCULOSKELETAL: No acute osseous abnormalities. Mild disc degeneration changes are present throughout the thoracolumbar spine. S scoliotic curvature. LYMPH NODES: No gross evidence for lymphadenopathy. SOFT TISSUE/ABDOMINAL WALL: Unremarkable IMPRESSION: 1. Stable right apical masslike consolidation/scarring from prior examination dating back to PET/CT 01/07/2023 which did not demonstrate FDG avidity at that time. Favored to represent scarring. Previous ly seen right perihilar soft tissue thickening and right upper lobe pulmonary nodule are no longer pr esent and consistent with positive response to previously seen FDG avid malignancy. No CT evidence fo r recurrence. 2. No evidence for metastatic disease within the abdomen and pelvis. 3. Cholelithiasis.
== END | disposition home or self-care (01) ==
LOC: RADCTMAIN 11:44
PROVIDERS: ATTEND Internal Medicine Hematology & Oncology
DX: C34.91 Malignant neoplasm of unspecified part of right bronchus or lung (principal); K80.20 Calculus of gallbladder without cholecystitis without obstruction; F41.9 Anxiety disorder, unspecified; E78.5 Hyperlipidemia, unspecified
CPT/HCPCS: 82565; 84520; 71260; 74177; 36415; Q9967

== ENCOUNTER → 2023-09-13 | Outpatient (CLI) | payer MEDICARE ==
--- NOTE | 2023-09-14 10:26 | CA ---
Transthoracic Echo Report Name: Adriana Jenkins Age: 73 Gender: F : 1950 Exam Date: 09/13/2023 13:16 Exam Location: [place] [facility] Ht (in): 62 Wt (lb): 114 Ordering Physician: Hieu Escobar MD Attending/Referring Phys: Contractor General Building Fanny Hatch [facility] Procedure CPT: Indications: R00.0 tachycardia Cardiac Hx: Technical Quality: Fair Contrast 1: Total Dose (mL): Contrast 2: Total Dose (mL): MEASUREMENTS (Male / Female) Normal Values 2D ECHO LV Diastolic Diameter PLAX 4.5 cm 4.2 - 5.9 / 3.9 - 5.3 cm LV Systolic Diameter PLAX 3.4 cm IVS Diastolic Thickness 0.8 cm 0.6 - 1.0 / 0.6 - 0.9 cm LVPW Diastolic Thickness 0.9 cm 0.6 - 1.0 / 0.6 - 0.9 cm LV Relative Wall Thickness 0.4 LVOT Diameter 2.0 cm Ascending Aorta Diameter 3.2 cm M-MODE Aortic Root Diameter MM 2.3 cm LA Systolic Diameter MM 3.1 cm LA Ao Ratio MM 1.3 AV Cusp Separation MM 1.3 cm DOPPLER AV Peak Velocity 109.6 cm/s AV Peak Gradient 4.8 mmHg AV Mean Velocity 76.7 cm/s AV Mean Gradient 2.7 mmHg AV Velocity Time Integral 21.0 cm LVOT Peak Velocity 106.3 cm/s LVOT Peak Gradient 4.5 mmHg LVOT Velocity Time Integral 16.8 cm LVOT Stroke Volume 53.3 cm??? LVOT Stroke Volume Index 35.4 ml/m??? LVOT Cardiac Index 2552.1 cm???/min???m??? AV Area Cont Eq vti 2.5 cm??? AV Area Cont Eq pk 3.1 cm??? Mitral E Point Velocity 45.9 cm/s Mitral A Point Velocity 76.7 cm/s Mitral E to A Ratio 0.6 MV Deceleration Time 210.6 ms LV E' Lateral Velocity 7.0 cm/s Mitral E to LV E' Lateral Ratio 6.5 LV E' Septal Velocity 6.5 cm/s Mitral E to LV E' Septal Ratio 7.1 TR Peak Velocity 235.8 cm/s TR Peak Gradient 22.2 mmHg Right Atrial Pressure 15.0 mmHg Pulmonary Artery Systolic Pressu 37.2 mmHg Right Ventricular Systolic Press 37.2 mmHg FINDINGS Left Ventricle Left ventricular wall thickness normal. Left ventricular cavity size normal. Low normal left ventricular systolic function with no obvious regional wall motion abnormalities. Left ventricular ejection fraction is estimated at 50- 55%. Right Ventricle Normal right ventricular size. Mild pulmonary hypertension. Right Atrium Normal right atrial size. Left Atrium Normal left atrial size. Mitral Valve Structurally normal mitral valve. No mitral regurgitation. Aortic Valve Trileaflet aortic valve. Diffuse thickening of the aortic valve cusps with reduced excursion. No aortic regurgitation. Tricuspid Valve Structurally normal tricuspid valve. Trace tricuspid regurgitation. Pulmonic Valve Pulmonic valve not well visualized. Trace pulmonic regurgitation. Pericardium No pericardial effusion. Echo free space anterior to the right ventricle likely represents a fat pad. Aorta Normal size aortic root and proximal ascending aorta. CONCLUSIONS Left ventricular ejection fraction is estimated at 50-55%. Normal LV size and systolic function Normal LV wall thickness No obvious regional wall motion abnormalities. Aortic sclerosis with no stenosis Epicardial fat Previewed by: Dr Jose A Daniel (Electronically Signed) Final Date: 14 September 2023 10:25
== END | disposition home or self-care (01) ==
LOC: RADECHMAIN 12:57
PROVIDERS: ATTEND Internal Medicine Critical Care Medicine
DX: I70.0 Atherosclerosis of aorta (principal); R00.0 Tachycardia, unspecified
CPT/HCPCS: 93306

== ENCOUNTER → 2023-09-13 | Outpatient (CLI) | payer MEDICARE ==
[2023-09-13 18:59] LABS: HCT 37.4 % (37.2-46.3); HGB 12.4 d/dL (12.0-15.0); MCHC 33.2 d/dL (32.0-37.0); MCV 108.7 FL (80.0-97.0); Mean Platelet Volume 10.6 FL (9.5-12.2); NRBC Per 100 WBC 0 X 10*3/uL (0.00-0.01); Platelet Count 298 X 10*3/uL (140-440); RBC 3.44 X 10*6/uL (4.10-5.20); RDW 14.1 % (11.5-14.5); WBC 5.48 X 10*3/uL (4.50-10.00)
[2023-09-13 19:34] LABS: ALT 16 U/L (8-44); AST 18 U/L (13-35); Albumin 4.5 d/dL (3.8-4.9); Alkaline Phosphatase 79 U/L (41-126); BUN/Creat Ratio 15.14 Ratio (12.00-20.00); Blood Urea Nitrogen 10.6 mg/dL (9.0-27.0); Calcium 9.7 mg/dL (8.7-10.3); Carbon Dioxide 24.2 mmol/L (21.6-31.8); Chloride 102 mmol/L (96-109); Globulin 2.5 d/dL (1.6-3.3); Glucose 81 mg/dL (70-110); Potassium 4.3 mmol/L (3.5-5.5); Sodium 138 mmol/L (135-145); T4, Free (Free Thyroxine) 1.32 ng/dL (0.80-1.80); Total Bilirubin 0.3 mg/dL (0.3-1.2)
[2023-09-13 21:31] LABS: Basophils # (A) 0.04 X 10*3/uL (0.00-0.10); Basophils % (A) 0.7 %; Elliptocytes 2+; Eosinophils # (A) 0.12 X 10*3/uL (0.04-0.35); Eosinophils % (A) 2.2 %; Lymphocytes # (A) 1.26 X 10*3/uL (0.90-5.00); Macrocytosis (M) 2+; Monocytes # (A) 0.63 X 10*3/uL (0.20-1.00); Monocytes % (A) 11.5 %; Neutrophils # (A) 3.42 X 10*3/uL (1.80-7.70); Neutrophils % (A) 62.4 %
== END | disposition home or self-care (01) ==
LOC: LABWHC1 13:44
PROVIDERS: ATTEND Internal Medicine Critical Care Medicine
DX: R00.0 Tachycardia, unspecified (principal)
CPT/HCPCS: 36415; 80053; 84439; 84443; 85025

== ENCOUNTER → 2023-10-31 | Outpatient (CLI) | payer MEDICARE ==
[2023-10-31 09:47] LABS: African American GFR (CKD) >90 (>60 ml/min/1.73 sqM); Blood Urea Nitrogen 14 mg/dL (7-17); Non-African American GFR(CKD) 85 (>60 ml/min/1.73 sqM)
--- NOTE | 2023-11-03 12:15 | CT ---
EXAMINATION TYPE: CT ChestAbdPelvis w con DATE OF EXAM: 10/31/2023 INDICATION: Lung Cancer COMPARISON: 08/01/2023 CT DLP: 510.40 mGycm CONTRAST: Performed with Oral Contrast and with IV Contrast, patient injected with 100 ml mL of Isovue 300. TECHNIQUE: Axial images at 5 mm thick sections. Reconstructed images in the coronal plane. Delayed images through the kidneys. FINDINGS: CT CHEST: Portion of the thyroid visualized is normal. Right apical thickening is present measuring 1.1 cm transverse. This is present previously. No enlarged mediastinal or hilar adenopathy is evident. The ascending aorta diameter at the level of the main pulmonary artery is 3.2 cm. The main pulmonary artery diameter at the bifurcation is 2.[address] ABDOMEN: Liver: Normal Spleen: Normal Pancreas: Normal Adrenal glands: The adrenal glands are normal. Gallbladder: There may be some sludge or small gallstones within the gallbladder. Kidneys: No masses are evident. No hydronephrosis is present. No cysts are present. Delayed images were obtained through the kidneys, which remain unremarkable. Aorta: Vascular calcification is within the aorta. Inferior vena cava: Normal. CT PELVIS: Loops of bowel within the abdomen and pelvis are normal. There are loops of bowel which are incom pletely distended or lack oral contrast limiting their evaluation. Appendix: Not identified. No dilated tubular structure or inflammatory changes evident. Urinary bladder: Normal. Genitourinary structures: Uterus appears normal. Adnexa are unremarkable. Osseous structures: No suspicious lytic or sclerotic lesions. Facet hypertrophy is in the lower lumba r spine IMPRESSION: 1. Right apical thickening, stable from comparison. 2. No suspicious metastatic lung cancer findings.
== END | disposition home or self-care (01) ==
LOC: RADCTMAIN 08:58
PROVIDERS: ATTEND Internal Medicine Hematology & Oncology
DX: C34.91 Malignant neoplasm of unspecified part of right bronchus or lung (principal); F41.9 Anxiety disorder, unspecified; E78.5 Hyperlipidemia, unspecified
CPT/HCPCS: 82565; 84520; 71260; 74177; 36415; Q9967

== ENCOUNTER → 2023-11-30 | Outpatient (CLI) | payer MEDICARE ==
--- NOTE | 2023-12-04 21:10 | MR ---
EXAMINATION TYPE: MR brain wo/w con DATE OF EXAM: 11/30/2023 COMPARISON: 09/05/2023 HISTORY: 73-year-old female C34.11, Malignant Neoplasm lung , 3 month f/u TECHNIQUE: Multiplanar, multisequence images of the brain and brainstem were acquired before and aft er administration of 5 mL IV Gadavist. Diffusion weighted imaging is performed. FINDINGS: No evidence for acute infarction, hemorrhage, mass, mass effect, midline shift, herniation, effacemen t of basal cisterns, or extra-axial fluid collection. The ventricles and sulci are age-appropriate. Major intracranial flow voids are intact. Redemonstrated findings suspicious for a 6 cm saccular aneu rysm projecting laterally from the clinoid segment right ICA. Possible additional 3 mm outpouching fr om the clinoid segment right ICA projecting anteriorly. Refer to axial series 701 image 59. Persisten t origin bilateral posterior cerebral arteries. Dominant left vertebral artery. T2/FLAIR weighted sequences show similar mild patchy periventricular bright white matter change espec ially in the periatrial regions. Mild patchy bright signal change bilateral paramedian amisha also rede monstrated. Midline structures demonstrate normal morphology. The craniocervical junction is normal. Post contrast images demonstrate no evidence of pathologic enhancement. Dural venous sinuses are pat ent. Mild mucosal thickening ethmoid air cells. Globes are intact. Leftward nasal septal deviation. IMPRESSION: 1. No enhancing intracranial lesions to suggest brain metastases. No acute intracranial abnormality s een. Similar mild burden of chronic small vessel ischemic disease. 2. Similar findings suspicious for saccular aneurysms from the right ICA measuring 6 mm and 3 mm. Rec ommend confirmation with thin cut CTA [place] of [place] and neurosurgery follow-up.
== END | disposition home or self-care (01) ==
LOC: RADMRIMAIN 09:56
PROVIDERS: ATTEND Radiology Radiation Oncology
DX: I67.82 Cerebral ischemia (principal); C77.1 Secondary and unspecified malignant neoplasm of intrathoracic lymph nodes; C34.11 Malignant neoplasm of upper lobe, right bronchus or lung
CPT/HCPCS: 70553; A9585

== ENCOUNTER → 2024-01-30 | Outpatient (CLI) | payer MEDICARE ==
[2024-01-30 12:32] LABS: African American GFR (CKD) >90 (>60 ml/min/1.73 sqM); Blood Urea Nitrogen 13 mg/dL (7-17); Non-African American GFR(CKD) 86 (>60 ml/min/1.73 sqM)
--- NOTE | 2024-01-30 14:00 | CT ---
EXAMINATION: CT CHEST, ABDOMEN AND PELVIS WITH IV CONTRAST DATE OF EXAMINATION: 01/30/2024. COMPARISON: None available. INDICATION: Follow-up for small cell lung cancer. PROCEDURE: Axial CT of the chest, abdomen and pelvis was performed following the intravenous adminis tration of 100 ml Isovue 300. Coronal and sagittal reformats were performed. CT dose lowering techni ques were used, to include: automated exposure control, adjustment for patient size, and/or use of it erative reconstruction. FINDINGS: CHEST: Mediastinum and Joslyn: There is no axillary, mediastinal or hilar lymphadenopathy. Pleural and Pericardial spaces: There are no pleural or pericardial effusions. Cardiovascular: There is mild vascular calcification within the thoracic aorta without evidence of an eurysmal dilation or dissection. Mild patchy coronary artery calcifications are otherwise noted. Pulmonary Artery: There are no central pulmonary arterial filling defects. Lung Parenchyma and Airways: There is moderate to severe diffuse centrilobular emphysema. ABDOMEN: Liver and Biliary system: There is a subcentimeter hypodensity within the right lobe of the liver th at is too small to fully characterize. This is unchanged. No new liver lesions are seen. Adrenal glands: Normal. Kidneys and ureters: Normal. Spleen: Normal. Pancreas: Normal. Gallbladder: Several gallstones are seen within the gallbladder. Lymph nodes, Peritoneum and mesentery: There is no mesenteric or retroperitoneal lymphadenopathy. Gastrointestinal tract: There are no dilated loops of bowel or free intraperitoneal air. . The appe ndix is normal. Aorta/IVC: There is moderate vascular calcification throughout the abdominal aorta without evidence of aneurysmal dilation or dissection.. IVC normal. Abdominal wall: Normal. PELVIS: Fluid: There is no free fluid in the pelvis. Lymph Nodes: There is no pelvic or inguinal lymphadenopathy.. Urinary bladder: Normal. BONES: There are no osseous destructive lesions.. ADDITIONAL SIGNIFICANT FINDINGS: None. IMPRESSION: 1. No definitive evidence of recurrent, residual or metastatic disease within the chest, abdomen or p arti. 2. Additional incidental and chronic changes noted above.
== END | disposition home or self-care (01) ==
LOC: RADCTMAIN 11:58
PROVIDERS: ATTEND Internal Medicine Hematology & Oncology
DX: J43.2 Centrilobular emphysema (principal); K80.20 Calculus of gallbladder without cholecystitis without obstruction; C34.91 Malignant neoplasm of unspecified part of right bronchus or lung; E78.5 Hyperlipidemia, unspecified; F41.9 Anxiety disorder, unspecified
CPT/HCPCS: 82565; 84520; 71260; 74177; 36415; Q9967

== ENCOUNTER → 2024-01-30 | Outpatient (CLI) | payer MEDICARE ==
[2024-01-30 18:41] LABS: Basophils # (A) 0.04 X 10*3/uL (0.00-0.10); Basophils % (A) 0.7 %; Eosinophils # (A) 0.08 X 10*3/uL (0.04-0.35); Eosinophils % (A) 1.3 %; HCT 40.1 % (37.2-46.3); HGB 13.4 g/dL (12.0-15.0); Lymphocytes # (A) 1.12 X 10*3/uL (0.90-5.00); Lymphocytes % (A) 18.6 %; MCH 35.9 pg (27.0-32.0); MCHC 33.4 g/dL (32.0-37.0); MCV 107.5 FL (80.0-97.0); Mean Platelet Volume 10.6 FL (9.5-12.2); Monocytes # (A) 0.53 X 10*3/uL (0.20-1.00); Monocytes % (A) 8.8 %; NRBC Per 100 WBC 0 X 10*3/uL (0.00-0.01); Neutrophils # (A) 4.25 X 10*3/uL (1.80-7.70); Neutrophils % (A) 70.4 %; Platelet Count 278 X 10*3/uL (140-440); RBC 3.73 X 10*6/uL (4.10-5.20); RDW 13.9 % (11.5-14.5); WBC 6.03 X 10*3/uL (4.50-10.00)
[2024-01-30 19:20] LABS: % Iron Saturation 21.47 (12.00-45.00); ALT 16 U/L (8-44); AST 17 U/L (13-35); Albumin 4.3 g/dL (3.8-4.9); Albumin/Globulin Ratio 1.72 Ratio (1.60-3.17); Alkaline Phosphatase 68 U/L (41-126); BUN/Creat Ratio 14.62 Ratio (12.00-20.00); Blood Urea Nitrogen 11.7 mg/dL (9.0-27.0); Calcium 9.5 mg/dL (8.7-10.3); Carbon Dioxide 25.3 mmol/L (21.6-31.8); Chloride 102 mmol/L (96-109); Chol/HDL Ratio 2.34 Ratio; Globulin 2.5 g/dL (1.6-3.3); Glucose 89 mg/dL (70-110); Iron 76 UG/DL (50-170); LDL Cholesterol,Calculated 84.2 mg/dL (0.0-131.0); Sodium 138 mmol/L (135-145); Total Bilirubin 0.3 mg/dL (0.3-1.2); Total Iron Binding Capacity 354 UG/DL (228-460); Total Protein 6.8 g/dL (6.2-8.2)
== END | disposition home or self-care (01) ==
LOC: LABWHC1 11:03
PROVIDERS: ATTEND Family Medicine
DX: E55.9 Vitamin D deficiency, unspecified (principal); E78.5 Hyperlipidemia, unspecified; D51.0 Vitamin B12 deficiency anemia due to intrinsic factor deficiency; D50.9 Iron deficiency anemia, unspecified
CPT/HCPCS: 36415; 80053; 80061; 82306; 82607; 83540; 83550; 85025

== ENCOUNTER → 2024-02-29 | Outpatient (CLI) | payer MEDICARE ==
--- NOTE | 2024-02-29 11:30 | MR ---
EXAMINATION TYPE: MR brain wo/w con DATE OF EXAM: 02/29/2024 COMPARISON: 11/30/2023 HISTORY: Lung cancer. TECHNIQUE: Multiplanar, multisequence images of the brain and brainstem is performed without and with IV contras t, utilizing 5.5 mL intravenous Gadavist . FINDINGS: Diffusion weighted images demonstrate no evidence of a recent infarct or other diffusion ab normality. Mild generalized degenerative change. Scattered areas of abnormal signal the white matter are nonspec ific but most typical removal white matter microvascular disease. Areas of abnormal signal involving the amisha most likely on the basis of remote ischemia in The right no enhancing masses. Midline structures demonstrate normal morphology. The craniocervical junction appears within normal limits. Post contrast images demonstrate Stable findings suspicious f or saccular aneurysm of the right ICA measuring 6 and 3 mm. . The dural venous sinuses appear patent. The visualized sinuses are clear and the globes are intact. IMPRESSION: 1. Degenerative and nonspecific white matter findings most typical of remote microvascular ischemia. 2. Stable findings consistent with aneurysm of the right ICA measuring 6 and 3 mm.
== END | disposition home or self-care (01) ==
LOC: RADMRIMAIN 09:33
PROVIDERS: ATTEND Radiology Radiation Oncology
DX: C34.11 Malignant neoplasm of upper lobe, right bronchus or lung (principal); C79.31 Secondary malignant neoplasm of brain; C77.1 Secondary and unspecified malignant neoplasm of intrathoracic lymph nodes; I67.82 Cerebral ischemia; I67.1 Cerebral aneurysm, nonruptured
CPT/HCPCS: 70553; A9585

== ENCOUNTER → 2024-04-30 | Outpatient (CLI) | payer MEDICARE ==
[2024-04-30 10:15] LABS: African American GFR (CKD) >90 (>60 ml/min/1.73 sqM); Blood Urea Nitrogen 11 mg/dL (7-17); Non-African American GFR(CKD) 89 (>60 ml/min/1.73 sqM)
--- NOTE | 2024-04-30 11:31 | CT ---
EXAMINATION TYPE: CT ChestAbdPelvis w con DATE OF EXAM: 04/30/2024 COMPARISON: 01/30/2024 and 10/31/2023 HISTORY: 73-year-old female C34.91, Follow up for lung cancer. TECHNIQUE: Contiguous axial scanning of the chest, abdomen, and pelvis performed with IV Contrast, pa tient injected with 100 ml mL of Isovue 300. Delayed images through the kidneys were obtained. Monae l/sagittal reconstructions performed. CT DLP: 442.20 mGycm Automated exposure control for dose reduction was used. FINDINGS: CHEST: The heart is normal size without pericardial effusion. Proximal LAD coronary artery calcifications ar e present. Mild atherosclerotic arch calcifications. Conventional arch vessel branching anatomy. Large caliber to the main right and left pulmonary arteries measuring up to 2.9 cm suggests underlyin g pulmonary hypertension. No thoracic lymphadenopathy by CT size criteria. Moderate centrilobular emphysema. Similar irregular left apical pleural parenchymal scarring. No cons olidation or pleural effusion. ABDOMEN: No focal liver lesion. Portal venous system is patent. Bile duct borderline caliber at 7 mm is unchan ged. Tiny layering gallstones. No abnormal gallbladder distention. Mild thickening of the left adrenal gland without discrete nodularity is unchanged. Right adrenal gland, kidneys, spleen, and pancreas within normal limits. Moderate atherosclerotic calcifications infrarenal abdominal aorta. No dilated small bowel, free fluid, or free air. No mesenteric or retroperitoneal lymphadenopathy. Scattered [id number] circumferential thickening throughout the visualized colon. Mild overall s tool burden though with more moderate stool distending the rectum up to 7.6 cm wide. PELVIS: Bladder urine distended. Uterus is retroverted. Small bilateral ovaries. No abnormal fluid collection pelvis or pelvic lymphadenopathy. BONE: Mild degenerative change of the hips. Osteitis pubis. No vascular disease and hypertrophic facet arth ropathy lumbar spine. Moderate degenerative disc disease L2/L3 and L3-L4. IMPRESSION: 1. COPD WITH MODERATE EMPHYSEMA AND SIMILAR BIAPICAL PLEURAL-PARENCHYMAL SCARRING. PULMONARY ARTERIAL HYPERTENSION. 2. UNCHANGED MILD THICKENING LEFT ADRENAL GLAND. NO RECURRENT OR METASTATIC DISEASE IDENTIFIED. 3. SCATTERED [id number] CIRCUMFERENTIAL WALL THICKENING THROUGHOUT THE COLON. IN THE ABSENCE OF ANY SYMPTOMS, AREAS OF NONDISTENTION AND PERISTALSIS CAN BE CONSIDERED. OTHERWISE, CORRELATE FOR NON SPECIFIC MILD TO MODERATE COLITIS. 4. POSSIBLE FECAL IMPACTION WITH THE RECTUM DISTENDED TO 7.6 CM WIDE WITH STOOL. 5. CHOLELITHIASIS.
== END | disposition home or self-care (01) ==
LOC: RADCTMAIN 09:24
PROVIDERS: ATTEND Internal Medicine Hematology & Oncology
DX: C34.91 Malignant neoplasm of unspecified part of right bronchus or lung (principal); E78.5 Hyperlipidemia, unspecified; F41.9 Anxiety disorder, unspecified; J43.2 Centrilobular emphysema; J44.9 Chronic obstructive pulmonary disease, unspecified; K80.20 Calculus of gallbladder without cholecystitis without obstruction; I27.21 Secondary pulmonary arterial hypertension
CPT/HCPCS: 82565; 84520; 71260; 74177; 36415; Q9967

== ENCOUNTER → 2024-07-06 | Outpatient (CLI) | payer MEDICARE ==
--- NOTE | 2024-08-02 13:10 | MR ---
Patient Adriana eJnkins ID [id number] [id number] Order # EXAMINATION TYPE: MR brain w con DATE OF EXAM: 07/06/2024 COMPARISON: No comparison available on downtime PACS. HISTORY: Lung cancer CONTRAST: Performed utilizing 5 mL intravenous Gadavist gadolinium contrast. TECHNIQUE: Multiplanar, multiecho imaging on a 3.0 Cathryn magnet is performed through the brain. Stud y is performed within 24 hours of arrival to the hospital. The craniovertebral junction is normal. The pituitary is normal. Diffusion-weighted imaging is performed. No abnormal hyperintensity is present to suggest an acute i ntracranial infarct or acute ischemic change. There may be some vague increased signal within the bra instem. Mild periventricular white matter hypodensity is present, likely on the basis of chronic whit e matter ischemic change. Within the inner calvarium near the vertex over the left cerebrum there is a 0.8 cm peripherally enha ncing area. Differential diagnosis could include a metastatic calvarial lesion. Example image series 701, image 155. Consider correlation with bone scan. Ventricles and sulci are appropriate for the patient age. IMPRESSION: 1. Peripherally enhancing calvarial lesion left vertex. Consider calvarial metastasis. 2. No suspicious intracranial lesion to suggest metastatic disease.
== END | disposition home or self-care (01) ==
LOC: RADMRIMAIN 10:12
PROVIDERS: ATTEND Radiology Radiation Oncology
DX: C34.11 Malignant neoplasm of upper lobe, right bronchus or lung (principal); C77.1 Secondary and unspecified malignant neoplasm of intrathoracic lymph nodes
CPT/HCPCS: 70553; A9585

== ENCOUNTER → 2024-08-27 | Outpatient (CLI) | payer MEDICARE ==
[2024-08-27 11:46] LABS: African American GFR (CKD) >90 (>60 ml/min/1.73 sqM); Blood Urea Nitrogen 9 mg/dL (7-17); Non-African American GFR(CKD) 78 (>60 ml/min/1.73 sqM)
--- NOTE | 2024-08-27 13:36 | CT ---
EXAMINATION TYPE: CT ChestAbdPelvis w con CT DLP: 452.9 mGycm, Automated exposure control for dose reduction was used. DATE OF EXAM: 08/27/2024 1:04 PM COMPARISON: Multiple CT Chest Abdomen Pelvis with most recent 04/30/2024 CLINICAL INDICATION:Female, 74 years old with history of C34.91 lung ca; PHH, Lung Ca. Technique: Multiple axial images of the chest, abdomen, and pelvis were obtained following the intrav enous administration of 100 mL Isovue-300. Oral contrast was administered. Two-dimensional coronal an d sagittal reconstructions were obtained. Findings: CHEST: LUNGS/ PLEURA: No pleural effusion, pneumothorax, focal consolidation. No suspicious pulmonary nodule or mass. Moderate centrilobular emphysematous changes. AIRWAY: Patent and unremarkable.. HEART: Size within normal limits. No pericardial effusion. Prominent LAD coronary artery calcificatio ns present. MEDIASTINUM: No gross evidence of adenopathy. VASCULATURE: No aortic aneurysm. Mild atherosclerotic arch calcifications. MUSCULOSKELETAL: No acute osseous abnormalities. SOFT TISSUES/LYMPH NODES: Unremarkable. LOWER NECK: No significant findings. ABDOMEN: ABDOMEN LIVER: Unremarkable GALLBLADDER AND BILE DUCTS: Layering increased densities within the lumen consistent with gallstones are present. Unchanged borderline prominent common bile duct measuring up to 7 mm. PANCREAS: Unremarkable. SPLEEN: Unremarkable. ADRENAL GLANDS: Unremarkable. KIDNEYS AND URETERS: No evidence of hydronephrosis or renal calculus. The kidneys enhance symmetrical ly. Contrast is demonstrated within both collecting systems on the delayed phase. PELVIS BLADDER: Unremarkable REPRODUCTIVE: Unremarkable. ABDOMEN & PELVIS STOMACH AND BOWEL: Stomach and duodenum are unremarkable. Enteric contrast reaches the transverse col on. No focal bowel wall thickening or surrounding inflammatory changes. No evidence of bowel obstruct ion. PERITONEUM: No evidence of pneumoperitoneum or free fluid. VASCULATURE: Mild atherosclerotic calcifications are present throughout the abdominal aorta and its b ranches. MUSCULOSKELETAL: No acute osseous abnormalities. Mild degenerative changes of the hips. Osteitis pubi s. No aggressive osseous lesion. Moderate degenerative disc disease L2/L3 and L3/L4. LYMPH NODES: No evidence for lymphadenopathy. SOFT TISSUE/ABDOMINAL WALL: Unremarkable IMPRESSION: 1. No definitive evidence of recurrent/residual or metastatic disease within the chest, abdomen and pelvis. 2. COPD changes redemonstrated. 3. Cholelithiasis. [facility], , 08/27/2024 1:33 PM
== END | disposition home or self-care (01) ==
LOC: RADCTMAIN 11:03
PROVIDERS: ATTEND Internal Medicine Hematology & Oncology
DX: C34.91 Malignant neoplasm of unspecified part of right bronchus or lung
CPT/HCPCS: 36415; 71260; 74177; 82565; 84520

== ENCOUNTER → 2024-10-31 | Outpatient (CLI) | payer MEDICARE ==
--- NOTE | 2024-11-02 09:51 | MR ---
EXAMINATION TYPE: MR brain wo/w con DATE OF EXAM: 10/31/2024 6:03 PM COMPARISON: 07/06/2024 CLINICAL INDICATION: Female, 74 years old with history of C34.11 MALIGNANT NEOPLASM OF UPPER LOBE, [place] ,C77.11, Lung cancer, Bilateral hearing loss TECHNIQUE: Multiplanar, multiecho imaging on a 3.0 Cathryn magnet is performed through the brain. Stud y is performed within 24 hours of arrival to the hospital.Multiplanar, multiecho imaging on a 3.0 Lena la magnet is performed through the knee. IV Contrast: 5.5 mL Gadobutrol (None, if empty) FINDINGS: The craniovertebral junction is normal. The pituitary is normal. Diffusion-weighted imaging is performed. No abnormal hyperintensity is present to suggest an acute i ntracranial infarct or acute ischemic change. There are scattered punctate areas of hyperintensity on T2 and Inversion Recovery weighted sequences which are non-specific but can be related to microvascular ischemic changes. Ventricles and sulci are appropriate for the patient age. Findings a small circumscribed left vertex calvarial lesion is stable. Given the stability pacchion g ranulation could be considered. Metastasis is considered less likely. IMPRESSION: 1. Stable calvarial lesion at the vertex probably benign. 2. No suspicious intracranial changes to suggest metastatic disease [facility], , 11/02/2024 9:49 AM
== END | disposition home or self-care (01) ==
LOC: RADMRIMAIN 16:41
PROVIDERS: ATTEND Radiology Radiation Oncology
DX: C34.11 Malignant neoplasm of upper lobe, right bronchus or lung (principal); C77.1 Secondary and unspecified malignant neoplasm of intrathoracic lymph nodes; H91.93 Unspecified hearing loss, bilateral
CPT/HCPCS: 70553; A9585

== ENCOUNTER → 2025-05-19 | Outpatient (CLI) | payer MEDICARE ==
--- NOTE | 2025-05-20 00:38 | MR ---
INDICATION: Patient age:Female; 74 years old; Reason for study: C34.11; PHH. COMPARISON: Multiple MR brain with most recent 10/31/2024. TECHNIQUE: Multi planar, multi sequence imaging was performed through the brain. The patient was then given 5.5 cc of Gadobutrol intravenously and multi planar, T1 fat-saturation images were obtained. FINDINGS: The fuentes-white junctions, ventricular system, basal cisterns appear unremarkable. Age-appropriate mil d cerebral volume loss. Diffusion-weighted imaging shows no evidence of restricted diffusion to sugge st acute/subacute infarct. Intracranial arterial flow voids are maintained. Midline structures show n o abnormality. Similar mild patchy areas of high T2/FLAIR signal intensity are seen within the perive ntricular and subcortical white matter. Additional similar involvement of the bilateral paramedian po ns. The susceptibility weighted images do not reveal any evidence for micro-hemorrhage. After adminis tration of gadolinium, no abnormal enhancement is seen to suspect metastasis. Dominant left vertebral artery. Stable findings suspicious for a 6 mm saccular aneurysm projecting laterally from the clinoi d segment of the right ICA additional 3 mm outpouching from the clinoid segment of the right ICA proj ecting anteriorly (series 801, image 66). Persistent origin of the bilateral OIL WINTERIZER. The bone marrow signal is within normal limits. The paranasal sinuses and globes are unremarkable. N manuel septal deviation to the left. IMPRESSION: 1. No evidence of intracranial mass, acute/subacute infarct, or abnormal enhancement to suggest metas tasis. 2. Similar mild nonspecific white matter changes, likely related to small vessel ischemic disease. 3. Stable findings consistent with 2 aneurysms of the right ICA with largest measuring 6 mm. [facility], , 05/20/2025 12:36 AM
== END | disposition home or self-care (01) ==
LOC: RADMRIMAIN 18:45
PROVIDERS: ATTEND Radiology Radiation Oncology
DX: C34.11 Malignant neoplasm of upper lobe, right bronchus or lung (principal); R90.82 White matter disease, unspecified
CPT/HCPCS: 70553; A9585